=== PATIENT | female | born 2000 | race Caucasian/White ===

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

== ENCOUNTER 2020-02-17 22:46 | Emergency (ER) | payer OTHER ==
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
[2020-02-17 23:07] VITALS: BP 115/57; PULSE 71; TEMP 99.2; BMI 32.3
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
[2020-02-18 01:37] LABS: EPI CELLS >36 /uL (0-25.1); HYALINE CASTS 5 /uL (0-3.1); PH,URINE 5.5 (5.0-8.0); URINE APPEARANCE CLOUDY; URINE BACTERIA 983 /uL (0-1359); URINE BILIRUBIN NEGATIVE (NEGATIVE); URINE COLOR YELLOW; URINE GLUCOSE (UA) NEGATIVE (NEGATIVE); URINE KETONE NEGATIVE (NEGATIVE); URINE LEUK ESTERASE TRACE (NEGATIVE); URINE NITRITE NEGATIVE (NEGATIVE); URINE PROTEIN NEGATIVE (NEGATIVE); URINE RBC 12 /uL (0-23.9); URINE WBC 98 /uL (0-25.8)
== END 2020-02-18 02:00 | disposition home or self-care (01) ==
LOC: JER 22:46
DX: O23.592 Infection of other part of genital tract in pregnancy, second trimester (principal); T76.11XA Adult physical abuse, suspected, initial encounter; Z3A.18 18 weeks gestation of pregnancy
CPT/HCPCS: 76815-TC; 81003; 99284-25

== ENCOUNTER 2020-07-12 03:40 | Inpatient (IN) | payer OTHER ==
[2020-07-12 04:56] LABS: INR 0.9 (0.83-1.09); PROTHROMBIN TIME (PATIENT) 10.9 SEC (9.7-13.0)
[2020-07-12 04:58] LABS: POTASSIUM 4.1 mmol/L (3.5-5.1)
[2020-07-12 04:59] LABS: ACTIVATED PTT 25.5 SECONDS (25.2-36.5)
[2020-07-12 05:00] LABS: BLOOD UREA NITROGEN 7.7 mg/dL (7-18); CALCIUM 8.9 mg/dL (8.5-10.1)
[2020-07-12 05:04] LABS: CREATININE 0.6 mg/dL (0.55-1.3)
[2020-07-12 05:05] LABS: BASO % 0.5 % (0-2.0); EOS % 1.1 % (0-4.5); HEMATOCRIT 31.4 % (32.4-45.2); HEMOGLOBIN 10.2 GM/dL (10.7-15.3); MCH 27.4 pg (25.7-33.7); MCHC 32.5 g/dl (32.0-36.0); MEAN CELL VOLUME 84.3 fl (80-96); MEAN PLT VOLUME 9.9 fl (7.5-11.1); MONO % 8.2 % (3.8-10.2); NEUT % 63.2 % (42.8-82.8); PLATELET COUNT 218 K/MM3 (134-434); RBC 3.72 M/mm3 (3.60-5.2); WHITE BLOOD COUNT 6.8 K/mm3 (4.0-10.0)
[2020-07-12] MEDS ORDERED: CITRIC ACID/SODIUM CITRATE 30 ML UNIT-DOSE CUP PO ONE (06:49)
[2020-07-12] MEDS: ELECTROLYTE-148 SOLN 1,000 ML IV SCH (07:00)
[2020-07-12] MEDS ORDERED: morphine SULFATE/PF 0.5 MG/ML (2cc Syringe - QUVA) ONE (07:09)
[2020-07-12] MEDS ORDERED: MIDAZOLAM HCL 2 MG/2 ML SINGLE DOSE VIAL ONE (07:40)
[2020-07-12] MEDS ORDERED: BENZOCAINE 20% 57 GM BOTTLE TP PRN (07:59)
[2020-07-12] MEDS ORDERED: WITCH HAZEL 50% (TUCKS) 40 PAD/JAR PAD TP PRN (07:59)
[2020-07-12] MEDS ORDERED: SENNOSIDES/DOCUSATE COMBO (SENNA PLUS) TABLET (UD) PO PRN (07:59)
[2020-07-12] MEDS ORDERED: METHYLERGONOVINE MALEATE 0.2 MG/1 ML AMP IM PRN (07:59)
[2020-07-12] MEDS ORDERED: oxyCODONE HCL 5 MG TABLET PO PRN (07:59)
[2020-07-12] MEDS ORDERED: IBUPROFEN 800 MG/8 ML IJ IVPB PRN (07:59)
[2020-07-12] MEDS ORDERED: BENZOCAINE 28 GM HEMORRHOIDAL OINTMENT TP PRN (07:59)
[2020-07-12 08:02] VITALS: BMI 35.2
[2020-07-12] MEDS: OXYTOCIN 20 UNITS in 0.9% NS 20 UNIT/1,000 ML INFUS.BAG IV SCH (08:23)
[2020-07-12] MEDS: PRENATAL VITAMINS W/ FOLIC ACID TABLET (FP) PO SCH (10:34)
[2020-07-12] MEDS: FERROUS SO4 325 MG TABLET (FP) PO SCH ×2 (10:34→22:33)
[2020-07-13] MEDS ORDERED: BISACODYL 10 MG SUPP.RECT RC PRN (07:59)
[2020-07-13 09:06] LABS: BASO % 0.4 % (0-2.0); EOS % 1.4 % (0-4.5); HEMATOCRIT 29.7 % (32.4-45.2); HEMOGLOBIN 9.5 GM/dL (10.7-15.3); LYMPH % 23.8 % (8-40); MCHC 32.1 g/dl (32.0-36.0); MEAN CELL VOLUME 84.2 fl (80-96); MEAN PLT VOLUME 9.8 fl (7.5-11.1); MONO % 7.9 % (3.8-10.2); NEUT % 66.5 % (42.8-82.8); PLATELET COUNT 183 K/MM3 (134-434); RBC 3.53 M/mm3 (3.60-5.2); RDW 13.8 % (11.6-15.6)
[2020-07-13] MEDS: FERROUS SO4 325 MG TABLET (FP) PO SCH ×2 (09:33→22:05)
[2020-07-13] MEDS: PRENATAL VITAMINS W/ FOLIC ACID TABLET (FP) PO SCH (09:34)
[2020-07-13] MEDS ORDERED: FLU VACCINE (FLULAVAL) PF 60 MCG/0.5 ML SYRINGE 2020-2021 IM ONE (10:00)
[2020-07-13] MEDS ORDERED: DIPHTH,PERTUSS(ACELL),TET 0.5 ML DISP.SYRIN IM ONE (10:00)
[2020-07-13] MEDS: ELECTROLYTE-148 SOLN 1,000 ML IV SCH ×3 (19:41→19:42)
[2020-07-13] MEDS: OXYTOCIN 20 UNITS in 0.9% NS 20 UNIT/1,000 ML INFUS.BAG IV SCH (19:41)
[2020-07-13] MEDS: IBUPROFEN 600 MG TABLET (FP) PO PRN (22:04)
[2020-07-13] MEDS: SIMETHICONE 80 MG TAB.CHEW (FP) PO PRN (22:06)
[2020-07-14 09:15] VITALS: BP 138/88; PULSE 70; TEMP 98
[2020-07-14] MEDS: IBUPROFEN 600 MG TABLET (FP) PO PRN (11:30)
[2020-07-14] MEDS: FERROUS SO4 325 MG TABLET (FP) PO SCH (11:30)
[2020-07-14] MEDS: PRENATAL VITAMINS W/ FOLIC ACID TABLET (FP) PO SCH (11:30)
[2020-07-14] MEDS: SIMETHICONE 80 MG TAB.CHEW (FP) PO PRN (11:30)
== END 2020-07-14 17:00 | disposition home or self-care (01) | DRG 540 ==
LOC: JDEL 03:40 → JLDR 06:40 → J3W 09:23
PROVIDERS: ADMIT Obstetrics & Gynecology; ATTEND Obstetrics & Gynecology
PROC: 10D00Z1 Extraction of Products of Conception, Low, Open Approach (ICD-10-PCS; principal; 2020-07-12)
DX: O34.211 Maternal care for low transverse scar from previous cesarean delivery (principal); N85.8 Other specified noninflammatory disorders of uterus; Z3A.39 39 weeks gestation of pregnancy; Z37.0 Single live birth
CPT/HCPCS: 36415; 59025; 80048; 85025; 85610; 85730; 86780; 86850; 86900; 86901; 88307-TC; 90715; C9803; G0008; Q2036; U0003

== ENCOUNTER 2020-11-22 16:34 | Emergency (ER) | payer OTHER ==
[2020-11-22 16:44] VITALS: BP 115/68; PULSE 79; TEMP 98.3; BMI 35.3
[2020-11-22] MEDS ORDERED: KETOROLAC TROMETHAMINE 60 MG/2 ML VIAL IM ONE (17:09)
[2020-11-22] MEDS ORDERED: KETOROLAC TROMETHAMINE 60 MG/2 ML VIAL ONE (17:42)
[2020-11-22 18:13] LABS: PH,URINE 6.5 (5.0-8.0); URINE APPEARANCE CLEAR; URINE BILIRUBIN NEGATIVE (NEGATIVE); URINE COLOR YELLOW; URINE GLUCOSE (UA) NEGATIVE (NEGATIVE); URINE KETONE TRACE (NEGATIVE); URINE LEUK ESTERASE NEGATIVE (NEGATIVE); URINE NITRITE NEGATIVE (NEGATIVE); URINE PROTEIN NEGATIVE (NEGATIVE); URINE UROBILINOGEN 0.2 mg/dL (0.2-1.0)
[2020-11-22 18:16] LABS: HCG,QUALITATIVE URINE Negative
== END 2020-11-22 18:45 | disposition home or self-care (01) ==
LOC: JERFT 16:34 → JER 16:34 → JERFT 18:45
PROC: 3E0233Z Introduction of Anti-inflammatory into Muscle, Percutaneous Approach (ICD-10-PCS; principal; 2020-11-22)
DX: S39.012A Strain of muscle, fascia and tendon of lower back, initial encounter (principal)
CPT/HCPCS: 72100-TC-FY; 81003; 84703; 87086; 99284-25

== ENCOUNTER 2021-10-31 12:05 | Inpatient (IN) | payer OTHER ==
[2021-10-31] MEDS ORDERED: ELECTROLYTE-148 SOLN 1,000 ML IV SCH (14:00)
[2021-10-31] MEDS ORDERED: FAMOTIDINE 20 MG/50 ML IVPB 20 MG/50 ML MG IVPB ONE ×2 (14:11→14:20)
[2021-10-31] MEDS ORDERED: morphine SULFATE/PF 1 MG/2 ML (2cc Syringe - QUVA) ONE (14:14)
[2021-10-31 14:15] LABS: BASO % 0.3 % (0-2.0); EOS % 2.8 % (0-4.5); HEMATOCRIT 34.1 % (32.4-45.2); HEMOGLOBIN 11.1 GM/dL (10.7-15.3); LYMPH % 20.5 % (8-40); MCH 28.2 pg (25.7-33.7); MCHC 32.6 g/dl (32.0-36.0); MEAN CELL VOLUME 86.6 fl (80-96); MEAN PLT VOLUME 9.1 fl (7.5-11.1); MONO % 8.5 % (3.8-10.2); NEUT % 67.9 % (42.8-82.8); PLATELET COUNT 240 10^3/uL (134-434); RBC 3.94 M/mm3 (3.60-5.2); RDW 13.3 % (11.6-15.6); WHITE BLOOD COUNT 6.8 K/mm3 (4.0-10.0)
[2021-10-31 14:26] LABS: INR 0.97 (0.83-1.09); PROTHROMBIN TIME (PATIENT) 11.1 SEC (9.7-13.0)
[2021-10-31 14:27] LABS: METHADONE, UR NEGATIVE (NEGATIVE); PHENCYCLIDINE,URINE NEGATIVE (NEGATIVE); URINE BARBITURATES NEGATIVE (NEGATIVE); URINE BENZODIAZEPINES NEGATIVE (NEGATIVE)
[2021-10-31 14:28] LABS: OPIATES, URI NEGATIVE (NEGATIVE)
[2021-10-31 14:29] LABS: ACTIVATED PTT 25.4 SECONDS (25.2-36.5)
[2021-10-31 14:41] LABS: CALCIUM 8.8 mg/dL (8.5-10.1)
[2021-10-31 14:42] LABS: BLOOD UREA NITROGEN 5.8 mg/dL (7-18)
[2021-10-31 14:45] LABS: CREATININE 0.5 mg/dL (0.55-1.3)
[2021-10-31 14:52] LABS: COCAINE, UR NEGATIVE (NEGATIVE); URINE AMPHETAMINES NEGATIVE (NEGATIVE)
[2021-10-31] MEDS ORDERED: ONDANSETRON 4 MG/2 ML VIAL ONE (15:10)
[2021-10-31] MEDS ORDERED: METOCLOPRAMIDE HCL INJECTION 10 MG/2 ML VIAL ONE (15:10)
[2021-10-31] MEDS ORDERED: KETOROLAC TROMETHAMINE 30 MG/1 ML VIAL ONE (15:10)
[2021-10-31] MEDS ORDERED: DEXAMETHASONE SOD PHOSPHATE 4 MG/1 ML VIAL ONE (15:10)
[2021-10-31] MEDS ORDERED: OXYTOCIN 10 UNITS/ML VIAL ONE (15:10)
[2021-10-31] MEDS ORDERED: METHYLERGONOVINE MALEATE 0.2 MG/1 ML AMP IM PRN (15:17)
[2021-10-31] MEDS ORDERED: OXYTOCIN 20 UNITS in 0.9% NS 20 UNIT/1,000 ML INFUS.BAG IV ONE (15:24)
[2021-10-31] MEDS ORDERED: morphine SULFATE/PF 1 MG/2 ML (2cc Syringe - QUVA) EP ONE (15:34)
[2021-10-31] MEDS ORDERED: ONDANSETRON 4 MG/2 ML VIAL IVPUSH PRN (15:34)
[2021-10-31 16:34] VITALS: BMI 36.3
[2021-10-31] MEDS: OXYTOCIN 20 UNITS in 0.9% NS 20 UNIT/1,000 ML INFUS.BAG IV SCH ×2 (17:24→22:50)
[2021-10-31] MEDS: IBUPROFEN 800 MG/8 ML IJ IVPB PRN (18:12)
[2021-11-01] MEDS: SIMETHICONE 80 MG TAB.CHEW (FP) PO PRN ×4 (06:30→22:33)
[2021-11-01] MEDS: IBUPROFEN 800 MG/8 ML IJ IVPB PRN (06:30)
[2021-11-01 07:48] LABS: BASO % 0.2 % (0-2.0); EOS % 0.4 % (0-4.5); HEMATOCRIT 26.3 % (32.4-45.2); HEMOGLOBIN 8.9 GM/dL (10.7-15.3); MCH 29.4 pg (25.7-33.7); MCHC 33.8 g/dl (32.0-36.0); MEAN CELL VOLUME 86.8 fl (80-96); MEAN PLT VOLUME 9.5 fl (7.5-11.1); MONO % 10.1 % (3.8-10.2); NEUT % 74.3 % (42.8-82.8); PLATELET COUNT 172 10^3/uL (134-434); RBC 3.03 M/mm3 (3.60-5.2); RDW 13.5 % (11.6-15.6); WHITE BLOOD COUNT 9.3 K/mm3 (4.0-10.0)
[2021-11-01] MEDS: ACETAMINOPHEN 325 MG TABLET (FP) PO PRN ×2 (13:06→22:34)
[2021-11-01] MEDS: IBUPROFEN 600 MG TABLET (FP) PO PRN ×2 (15:14→20:46)
[2021-11-01] MEDS: BISACODYL 10 MG SUPP.RECT RC PRN (18:05)
[2021-11-02] MEDS: IBUPROFEN 600 MG TABLET (FP) PO PRN (07:10)
[2021-11-02] MEDS: SIMETHICONE 80 MG TAB.CHEW (FP) PO PRN ×3 (07:12→22:32)
[2021-11-02] MEDS: oxyCODONE HCL 5 MG TABLET PO PRN ×2 (15:34→22:25)
[2021-11-02] MEDS: BISACODYL 10 MG SUPP.RECT RC PRN (19:51)
[2021-11-02] MEDS: ACETAMINOPHEN 325 MG TABLET (FP) PO PRN (23:43)
[2021-11-03] MEDS: oxyCODONE HCL 5 MG TABLET PO PRN (02:21)
[2021-11-03] MEDS: SIMETHICONE 80 MG TAB.CHEW (FP) PO PRN (02:21)
[2021-11-03 07:40] LABS: BASO % 0.4 % (0-2.0); EOS % 3.3 % (0-4.5); HEMATOCRIT 28.6 % (32.4-45.2); HEMOGLOBIN 9.4 GM/dL (10.7-15.3); LYMPH % 19.6 % (8-40); MCH 28.6 pg (25.7-33.7); MCHC 32.7 g/dl (32.0-36.0); MEAN CELL VOLUME 87.5 fl (80-96); NEUT % 65.7 % (42.8-82.8); PLATELET COUNT 208 10^3/uL (134-434); RBC 3.27 M/mm3 (3.60-5.2); RDW 13.8 % (11.6-15.6); WHITE BLOOD COUNT 7.2 K/mm3 (4.0-10.0)
[2021-11-03 09:10] VITALS: BP 123/84; PULSE 82; TEMP 98.6
== END 2021-11-03 14:30 | disposition home or self-care (01) | DRG 540 ==
LOC: JDEL 12:05 → JLDR 13:35 → J3W 17:30
PROVIDERS: ADMIT Obstetrics & Gynecology; ATTEND Obstetrics & Gynecology
PROC: 10D00Z1 Extraction of Products of Conception, Low, Open Approach (ICD-10-PCS; principal; 2021-11-01)
DX: O34.219 Maternal care for unspecified type scar from previous cesarean delivery (principal); Z3A.37 37 weeks gestation of pregnancy; Z37.0 Single live birth
CPT/HCPCS: 36415; 80048; 80307; 85025; 85610; 85730; 86780; 86850; 86900; 86901; 88307-TC; C9803-CS; U0003; U0005

== ENCOUNTER 2021-12-24 17:30 | Emergency (ER) | payer OTHER ==
[2021-12-24 17:54] VITALS: BP 121/82; PULSE 101; TEMP 99; BMI 36.3
[2021-12-24] MEDS ORDERED: METHOCARBAMOL 500 MG TABLET PO ONE (20:19)
[2021-12-24] MEDS ORDERED: KETOROLAC TROMETHAMINE 30 MG/1 ML VIAL IM ONE (20:19)
[2021-12-24] MEDS ORDERED: METHOCARBAMOL 500 MG TABLET ONE ×2 (20:33→20:35)
[2021-12-24] MEDS ORDERED: KETOROLAC TROMETHAMINE 30 MG/1 ML VIAL ONE ×2 (20:33→20:35)
== END 2021-12-24 21:16 | disposition home or self-care (01) ==
LOC: JER 17:30
PROC: 3E0233Z Introduction of Anti-inflammatory into Muscle, Percutaneous Approach (ICD-10-PCS; principal; 2021-12-24)
DX: S40.022A Contusion of left upper arm, initial encounter (principal); S00.03XA Contusion of scalp, initial encounter; R10.30 Lower abdominal pain, unspecified; S40.812A Abrasion of left upper arm, initial encounter; Y04.0XXA Assault by unarmed brawl or fight, initial encounter; Y92.9 Unspecified place or not applicable
CPT/HCPCS: 70450-TC; 70486-TC; 73030-TC-LT-FY; 99285-25

== ENCOUNTER 2022-08-16 12:13 | Emergency (ER) | payer SELFPAY ==
[2022-08-16] MEDS ORDERED: SUMATRIPTAN SUCCINATE 6 MG/0.5 ML VIAL SQ ONE (12:41)
[2022-08-16] MEDS ORDERED: METOCLOPRAMIDE HCL INJECTION 10 MG/2 ML VIAL IM ONE (12:41)
[2022-08-16] MEDS ORDERED: SUMATRIPTAN SUCCINATE 6 MG/0.5 ML VIAL ONE (12:42)
[2022-08-16] MEDS ORDERED: METOCLOPRAMIDE HCL INJECTION 10 MG/2 ML VIAL ONE (12:45)
[2022-08-16 12:58] VITALS: BMI 35.3
[2022-08-16] MEDS ORDERED: SODIUM CHLORIDE 0.9% 500 ML INFUS.BAG IV ONE (13:07)
[2022-08-16 13:35] LABS: BASO % 0.5 % (0-2.0); EOS % 2.2 % (0-4.5); HEMATOCRIT 42.8 % (32.4-45.2); HEMOGLOBIN 14.2 GM/dL (10.7-15.3); LYMPH % 7.4 % (8-40); MCH 29.6 pg (25.7-33.7); MCHC 33.3 g/dl (32.0-36.0); MEAN PLT VOLUME 8.7 fl (7.5-11.1); MONO % 11.7 % (3.8-10.2); NEUT % 78.2 % (42.8-82.8); PLATELET COUNT 248 10^3/uL (134-434); RBC 4.81 M/mm3 (3.60-5.2); RDW 13.5 % (11.6-15.6); WHITE BLOOD COUNT 7.8 K/mm3 (4.0-10.0)
[2022-08-16 13:40] LABS: INR 1.05 (0.83-1.09); PROTHROMBIN TIME (PATIENT) 12.1 SEC (9.7-13.0)
[2022-08-16 14:22] LABS: ALBUMIN 4.2 g/dl (3.4-5.0); CALCIUM 9.2 mg/dL (8.5-10.1)
[2022-08-16 14:26] LABS: CREATININE 0.7 mg/dL (0.55-1.3)
[2022-08-16 14:27] LABS: BILIRUBIN,TOTAL 0.8 mg/dL (0.2-1)
[2022-08-16 14:32] LABS: EPI CELLS 19 /uL (0-25.1); HYALINE CASTS 0 /uL (0-3.1); URINE APPEARANCE CLEAR; URINE BACTERIA 240 /uL (0-1359); URINE BILIRUBIN NEGATIVE (NEGATIVE); URINE COLOR YELLOW; URINE GLUCOSE (UA) NEGATIVE (NEGATIVE); URINE KETONE TRACE (NEGATIVE); URINE LEUK ESTERASE NEGATIVE (NEGATIVE); URINE NITRITE NEGATIVE (NEGATIVE); URINE PROTEIN 1+ (NEGATIVE); URINE RBC 33 /uL (0-23.9); URINE UROBILINOGEN 0.2 mg/dL (0.2-1.0); URINE WBC 20 /uL (0-25.8)
[2022-08-16 14:47] VITALS: BP 114/78; PULSE 112; RESP 18; TEMP 99
== END 2022-08-16 15:18 | disposition left against medical advice (07) ==
LOC: JER 12:13
PROC: 3E023GC Introduction of Other Therapeutic Substance into Muscle, Percutaneous Approach (ICD-10-PCS; principal; 2022-08-16)
DX: G43.909 Migraine, unspecified, not intractable, without status migrainosus (principal)
CPT/HCPCS: 36415; 80053; 81003; 84703; 85025; 85610; 99284-25